=== PATIENT | male | born 1975 | race Caucasian/White ===

== ENCOUNTER 2018-06-01 09:27 | Emergency (ER) | payer OTHER ==
[2018-06-01 09:31] VITALS: TEMP 98.4; BMI 36.6
[2018-06-01] MEDS ORDERED: LIDO 2%/EPI 1:200000 PRESRVFRE (20 ML SDVIAL) ONE (09:32)
[2018-06-01] MEDS ORDERED: LIDOCAINE 1%/EPI 1:100000 (50 ML MULTI DOSE VIAL) INF ONE (10:00)
[2018-06-01] MEDS ORDERED: IBUPROFEN 400 MG TABLET (FP) PO ONE ×2 (10:00→10:06)
--- NOTE | 2018-06-01 10:05 | PDOC ---
History of Present Illness - General Chief Complaint: Wound Stated Complaint: CYST BEHIND LEFT EAR Time Seen by Provider: 06/01/18 09:29 - History of Present Illness Initial Comments: 06/01/18 10:01 43yo M hx HTN (prev on meds, but were stopped due to controlled BP) presents to the ED with painful cyst behind L ear. Pt noticed the cyst 3 days ago and states the pain has gotten worse since. Denies fevers, chills, headache, ear pain. Pt unable to see cyst and thus can not tell us if redness has increased. Denies hx similar sxs. Denies recent CP, SOB, visual changes, weakness, numbness , dizziness, abd pain, N/V/D. Past History - Past Medical History Allergies/Adverse Reactions: Allergies Allergy/AdvReac Type Severity Reaction Status Date / Time No Known Allergies Allergy Verified 06/01/18 09:35 Home Medications: Ambulatory Orders NK [No Known Home Medication] 06/01/18 COPD: No HTN: Yes (not on meds x 4 months.) - Suicide/Smoking/Psychosocial Hx Smoking History: Former smoker Have you smoked in the past 12 months: No Number of Cigarettes Smoked Daily: 1 If you are a former smoker, when did you quit?: 2 teasr ago Information on smoking cessation initiated: No Hx Alcohol Use: Yes (socially) Drug/Substance Use Hx: No Substance Use Type: None Review of Systems - Review of Systems Comments:: 06/01/18 10:04 GENERAL/CONSTITUTIONAL: No fever or chills. No weakness. HEAD, EYES, EARS, NOSE AND THROAT: No change in vision. No ear pain or discharge. No sore throat. GASTROINTESTINAL: No nausea, vomiting, diarrhea or constipation. GENITOURINARY: No dysuria, frequency, or change in urination. CARDIOVASCULAR: No chest pain or shortness of breath. RESPIRATORY: No cough, wheezing, or hemoptysis. MUSCULOSKELETAL: No joint or muscle swelling or pain. No neck or back pain. SKIN: +cyst behind L ear NEUROLOGIC: No headache, vertigo, loss of consciousness, or change in strength/ sensation. ENDOCRINE: No increased thirst. No abnormal weight change. HEMATOLOGIC/LYMPHATIC: No anemia, easy bleeding, or history of blood clots. ALLERGIC/IMMUNOLOGIC: No hives or skin allergy. *Physical Exam - Vital Signs Last Vital Signs Temp Pulse Resp BP Pulse Ox 98.4 F 81 18 178/116 H 98 06/01/18 09:28 06/01/18 09:28 06/01/18 09:28 06/01/18 09:28 06/01/18 09:28 - Physical Exam Comments: 06/01/18 10:05 GENERAL: Awake, alert, and fully oriented, in no acute distress. Non toxic, well appearing EYES: PERRLA, EOMI, sclera anicteric, conjunctiva clear ENT: Auricles normal inspection, hearing grossly normal, +1cm erythematous fluctuant tender cyst with no streaking or surrounding erythema. Oropharynx clear without exudates. Moist mucosa NECK: Normal ROM, supple, no lymphadenopathy or masses LUNGS: Breath sounds equal, clear to auscultation bilaterally. No wheezes, and no crackles HEART: Regular rate and rhythm, normal S1 and S2, no murmurs, rubs or gallops ABDOMEN: Soft, nontender, normoactive bowel sounds. No guarding, no rebound. No masses EXTREMITIES: Normal range of motion, no edema. No clubbing or cyanosis. No cords, erythema, or tenderness NEUROLOGICAL: Normal speech, cranial nerves intact, equal strength and sensation b/l. Normal gait SKIN: As noted above Procedures - Incision and Drainage I&D Site: Left: Other (posterior auricle) Anesthesia: 1% Lidocaine w/ Epi Volume(ml): 1 Blade Size: 11 Attempts: 1 Plain Packing: No Complications: none Dressing: Yes Medical Decision Making - Medical Decision Making 06/01/18 10:09 43yo M presents to the ED with infected cyst posterior to L ear. No surrounding erythema or streaking to suggest cellulitis or extension. 1% lido with epi given for anesthesia. I&D performed with drainage of white pus and sebaceous material. Wound dressed. No need for packing due to small size and no need for abx at this time given local infection. Pt lives alone, states can get help with dressing changes but can not visualize wound. As such, pt instructed to return in 48hrs for wound check. Pt offered ibuprofen but declined as pain was well controlled. Pt well appearing, non toxic, stable for DC home I discussed the physical exam findings, ancillary test results and final diagnoses with the patient. I answered all of the patient's questions. The patient was satisfied with the care received and felt comfortable with the discharge plan and treatment plan. The patient will call their primary care physician within 24 hours to arrange follow-up and will return to the Emergency Department with any new, persistent or worsening symptoms. *DC/Admit/Observation/Transfer Diagnosis at time of Disposition: Infected cyst of skin - Discharge Dispostion Disposition: HOME Condition at time of disposition: Stable Decision to Admit order: No - Referrals - Patient Instructions Printed Discharge Instructions: DI for Skin Abscess Additional Instructions: Change the dressing twice a day, as discussed have a family member keep an eye on the wound Take ibuprofen or tylenol as needed for pain Your blood pressure was elevated in the emergency department. Follow up with your primary doctor within 2-3 days as you may need to be restarted on blood pressure medications. Return on Friday06/03/18 for a wound check Return to the emergency department if you have any new, worsening, or concerning symptoms such as fever, increasing redness, discharge Print Language: CZECH - Post Discharge Activity - Attestations Physician Attestion: 06/01/18 10:14 I, Dr. Yvonne Gandhi MD, attest that this document has been prepared under my direction and personally reviewed by me in its entirety. I further attest, that it accurately reflects all work, treatment, procedures and medical decision -making performed by me.
[2018-06-01 10:12] VITALS: BP 157/95; PULSE 80
== END 2018-06-01 10:19 | disposition home or self-care (01) ==
LOC: FER 09:27
DX: Z53.21 Procedure and treatment not carried out due to patient leaving prior to being seen by health care provider (principal)
CPT/HCPCS: 87070; 87077; 87205; 99283-25

== ENCOUNTER 2018-06-03 08:47 | Emergency (ER) | payer OTHER ==
--- NOTE | 2018-06-03 08:49 | PDOC ---
History of Present Illness - General Chief Complaint: Revisit,Wound Recheck Stated Complaint: WOUND CHECK LEFT EAR Time Seen by Provider: 06/03/18 08:49 History Source: Patient Exam Limitations: No Limitations - History of Present Illness Initial Comments: 06/03/18 08:53 Mr Whitt presents to the ER for a wound check He was seen in the ER 3 days ago for incision and drainage of an abscess behind the left ear which had been present for a few days No fevers or chills Pt is unable to see behind the ear so unable to say if it has been red No drainage No pain at all in the ER or behind the ear No swelling PMH: HTN PSH: denies Meds: not currently taking any medications ALL: NKDA Social: denies tobacco, FH: non contributore ROS: GENERAL/CONSTITUTIONAL: No: fever, chills . HEAD, EYES, EARS, NOSE AND THROAT: No: swelling behind ear CARDIOVASCULAR: No: chest pain, lightheadedness, palpitations, syncope RESPIRATORY: No: cough, shortness of breath GASTROINTESTINAL: No: nausea, vomiting, diarrhea, abdominal pain GENITOURINARY: No: flank pain. MUSCULOSKELETAL: No: back pain SKIN: No: drainage, swelling NEUROLOGIC: No: headache PE: GENERAL: The patient is in no acute distress. HEAD: Normal EYES: PERRLA, EOMI ENT: Ears normal, nares patent, no mastoid tenderness, Moist mucous membranes. NECK: Normal range of motion, supple without lymphadenopathy LUNGS: Breath sounds equal, clear to auscultation bilaterally. HEART:Regular rate and rhythm, normal S1 and S2 without murmur ABDOMEN: Soft, nontender EXTREMITIES: Normal range of motion, no edema. No clubbing or cyanosis. No erythema, or tenderness. NEUROLOGICAL: Cranial nerves II through XII grossly intact. Normal speech. No focal neurological deficits. SKIN: No erythema behind left ear, no drainage, no swelling 06/03/18 08:54 Past History - Past Medical History Allergies/Adverse Reactions: Allergies Allergy/AdvReac Type Severity Reaction Status Date / Time No Known Allergies Allergy Verified 06/03/18 08:49 Home Medications: Ambulatory Orders NK [No Known Home Medication] 06/03/18 COPD: No HTN: Yes (not on meds x 4 months.) - Suicide/Smoking/Psychosocial Hx Smoking History: Former smoker Have you smoked in the past 12 months: No Number of Cigarettes Smoked Daily: 1 If you are a former smoker, when did you quit?: 2 teasr ago Hx Alcohol Use: Yes (socially) Drug/Substance Use Hx: No Medical Decision Making - Medical Decision Making 06/03/18 08:59 Skin behind left ear is nml, no signs of cellulitis Will plan to discharge to home Pt BP elevated will re check Pt already has plan to follow up with PMD on Friday for medication initiation *DC/Admit/Observation/Transfer Diagnosis at time of Disposition: Cyst Hypertension Qualifiers: Hypertension type: unspecified Qualified Code(s): I10 - Essential (primary) hypertension - Discharge Dispostion Disposition: HOME Condition at time of disposition: Stable Decision to Admit order: No - Referrals - Patient Instructions Printed Discharge Instructions: DI for High Blood Pressure, DI for Epidermal Cyst Additional Instructions: Thank you for coming in to the ER today Please be sure to keep your appointment with your primary doctor for blood pressure medications Your blood pressure is high If you notice symptoms - chest pain, shortness of breath, palpitations, headache , weakness, abdominal pain, come back to be checked again You had an infection of a cyst behind your left ear The cyst is still there and could possibly become infected again You will need to follow up with your doctor about this cyst In some people, it is recommended that the cyst be removed If you notice this area is swollen, hot, painful please return to be re evaluated - Post Discharge Activity Forms/Work/School Notes: Back to Work
[2018-06-03 09:03] VITALS: TEMP 98.1; BMI 36.6
[2018-06-03 09:20] VITALS: BP 157/106; PULSE 68
== END 2018-06-03 09:25 | disposition home or self-care (01) ==
LOC: FER 08:47
DX: Z48.01 Encounter for change or removal of surgical wound dressing (principal)
CPT/HCPCS: 99281-25

== ENCOUNTER 2020-08-25 06:52 | Day surgery (SDC) | payer OTHER ==
[2020-08-22 17:09] VITALS: BMI 36.1
[2020-08-25] MEDS ORDERED: oxyCODONE HCL 5 MG TABLET PO ONE (07:13)
[2020-08-25] MEDS ORDERED: ACETAMINOPHEN 325 MG TABLET (FP) PO PRN (07:13)
[2020-08-25] MEDS ORDERED: BUPIVACAINE HCL/EPINEPHRINE/PF 30 ML VIAL IJ ONE ×2 (08:44→08:47)
[2020-08-25] MEDS ORDERED: BUPIVACAINE HCL 50 ML ONE (08:47)
[2020-08-25] MEDS ORDERED: MORPHINE 5 MG/10 ML AMP - FOR COMPOUNDING USE ONLY ONE (08:48)
[2020-08-25] MEDS ORDERED: MIDAZOLAM HCL 2 MG/2 ML SINGLE DOSE VIAL ONE ×3 (09:12→09:31)
[2020-08-25] MEDS ORDERED: BUPIVACAINE HCL/PF 0.5% (5 MG/ML) 30 ML VIAL IJ ONE (10:28)
[2020-08-25] MEDS ORDERED: oxyCODONE HCL 5 MG TABLET PO PRN (10:43)
[2020-08-25] MEDS ORDERED: ONDANSETRON 4 MG/2 ML VIAL IVPUSH PRN (10:43)
[2020-08-25 12:29] VITALS: TEMP 98
[2020-08-25 14:25] VITALS: BP 148/83; PULSE 66
== END 2020-08-25 14:40 | disposition home or self-care (01) ==
LOC: FASU 06:52
PROVIDERS: ATTEND Orthopaedic Surgery
PROC: 0SBC4ZZ Excision of Right Knee Joint, Percutaneous Endoscopic Approach (ICD-10-PCS; principal; 2020-08-25 09:44)
DX: S83.271A Complex tear of lateral meniscus, current injury, right knee, initial encounter (principal); X58.XXXA Exposure to other specified factors, initial encounter; Y93.9 Activity, unspecified; Y92.9 Unspecified place or not applicable; Y99.9 Unspecified external cause status
CPT/HCPCS: 94760

== ENCOUNTER 2021-09-14 04:12 | Day surgery (SDC) | payer OTHER ==
[2021-09-13 13:03] VITALS: BMI 33.3
[2021-09-14] MEDS ORDERED: BUPIVACAINE HCL/PF 0.5% (5MG/ML) 10 ML VIAL ONE (10:35)
[2021-09-14] MEDS ORDERED: LIDOCAINE HCL/PF 1% SDV 5ML VIAL ONE (10:36)
[2021-09-14] MEDS ORDERED: LIDOCAINE HCL 1% PRESERVATIVE FREE - 30ML VIAL IJ ONE ×2 (11:09→11:28)
[2021-09-14] MEDS ORDERED: IOHEXOL 180 MG/1 ML ML IJ ONE ×2 (11:10→11:29)
[2021-09-14] MEDS ORDERED: BUPIVACAINE HCL/PF 0.5% (5MG/ML) 10 ML VIAL IJ ONE (11:10)
[2021-09-14] MEDS ORDERED: TRIAMCINOLONE ACET 40MG/1ML VIAL IM ONE (11:11)
[2021-09-14 12:07] VITALS: BP 124/72; PULSE 61; TEMP 97.4
== END 2021-09-14 12:05 | disposition home or self-care (01) ==
LOC: JASU-SURG 04:12
PROVIDERS: ATTEND Pain Medicine Pain Medicine
PROC: 3E0U33Z Introduction of Anti-inflammatory into Joints, Percutaneous Approach (ICD-10-PCS; 2021-09-14)
PROC: 3E0U3BZ Introduction of Anesthetic Agent into Joints, Percutaneous Approach (ICD-10-PCS; principal; 2021-09-14 11:00)
DX: M53.3 Sacrococcygeal disorders, not elsewhere classified (principal); M54.50 Low back pain, unspecified
CPT/HCPCS: 76000-TC-FY

== ENCOUNTER 2021-11-06 04:34 | Day surgery (SDC) | payer OTHER ==
[2021-11-05 12:07] VITALS: BMI 32.5
[~2021-11-06 04:34] MED LIST: BUPIVACAINE HCL/PF 0.75% 10 ML VIAL NR ONE; IOHEXOL 180 MG/1 ML ML IJ ONE; LIDOCAINE HCL 1% PRESERVATIVE FREE - 30ML VIAL IJ ONE
[2021-11-06] MEDS ORDERED: LIDOCAINE HCL/PF 1% SDV 5ML VIAL ONE ×2 (07:35→11:58)
[2021-11-06] MEDS ORDERED: DEXAMETHASONE SOD PHOSPHATE 10 MG/1 ML VIAL ONE (11:58)
[2021-11-06] MEDS ORDERED: LIDOCAINE HCL 1% PRESERVATIVE FREE - 30ML VIAL IJ ONE (14:01)
[2021-11-06] MEDS ORDERED: IOHEXOL 180 MG/1 ML ML IJ ONE (14:02)
[2021-11-06] MEDS ORDERED: BUPIVACAINE HCL/PF 0.75% 10 ML VIAL NR ONE (14:04)
[2021-11-06 14:19] VITALS: TEMP 98.2
[2021-11-06 14:33] VITALS: BP 129/73; PULSE 69
== END 2021-11-06 14:35 | disposition home or self-care (01) ==
LOC: JASU-SURG 04:34
PROVIDERS: ATTEND Pain Medicine Pain Medicine
PROC: BR16YZZ Fluoroscopy of Lumbar Facet Joint(s) using Other Contrast (ICD-10-PCS; 2021-11-06)
PROC: 3E0T3BZ Introduction of Anesthetic Agent into Peripheral Nerves and Plexi, Percutaneous Approach (ICD-10-PCS; principal; 2021-11-06 14:30)
DX: M47.816 Spondylosis without myelopathy or radiculopathy, lumbar region (principal); I10 Essential (primary) hypertension
CPT/HCPCS: 76000-TC-FY; J1100

== ENCOUNTER 2021-12-18 04:32 | Day surgery (SDC) | payer OTHER ==
[2021-12-17 13:24] VITALS: BMI 33.3
[2021-12-18] MEDS ORDERED: LIDOCAINE HCL 1% PRESERVATIVE FREE - 30ML VIAL PNB ONE (12:21)
[2021-12-18] MEDS ORDERED: BUPIVACAINE HCL/PF 0.75% 10 ML VIAL PNB ONE (12:23)
[2021-12-18 12:37] VITALS: TEMP 98
[2021-12-18 12:59] VITALS: BP 133/87; PULSE 65
== END 2021-12-18 12:50 | disposition home or self-care (01) ==
LOC: JASU-SURG 04:32
PROVIDERS: ATTEND Pain Medicine Pain Medicine
PROC: 3E0T33Z Introduction of Anti-inflammatory into Peripheral Nerves and Plexi, Percutaneous Approach (ICD-10-PCS; 2021-12-18)
PROC: 3E0T3BZ Introduction of Anesthetic Agent into Peripheral Nerves and Plexi, Percutaneous Approach (ICD-10-PCS; principal; 2021-12-18 11:00)
DX: M47.816 Spondylosis without myelopathy or radiculopathy, lumbar region (principal)
CPT/HCPCS: 76000-TC-FY

== ENCOUNTER 2022-01-15 04:50 | Day surgery (SDC) | payer OTHER ==
[2022-01-14 09:34] VITALS: BMI 33.3
[2022-01-15] MEDS ORDERED: BUPIVACAINE HCL/PF 0.75% 10 ML VIAL ONE (07:46)
[2022-01-15] MEDS ORDERED: DEXAMETHASONE SOD PHOSPHATE 10 MG/1 ML VIAL ONE (07:47)
[2022-01-15] MEDS ORDERED: LIDOCAINE HCL/PF 1% SDV 5ML VIAL ONE (07:47)
[2022-01-15] MEDS ORDERED: LIDOCAINE HCL/PF 2% SDV 5ML VIAL PNB ONE ×2 (12:38)
[2022-01-15] MEDS ORDERED: LIDOCAINE HCL 1% PRESERVATIVE FREE - 30ML VIAL IJ ONE (12:38)
[2022-01-15] MEDS ORDERED: BUPIVACAINE HCL/PF 0.75% 10 ML VIAL NR ONE (12:39)
[2022-01-15 13:20] VITALS: BP 131/84; PULSE 63; TEMP 98.1
== END 2022-01-15 13:44 | disposition home or self-care (01) ==
LOC: JASU-SURG 04:50
PROVIDERS: ATTEND Pain Medicine Pain Medicine
PROC: BR16YZZ Fluoroscopy of Lumbar Facet Joint(s) using Other Contrast (ICD-10-PCS; 2022-01-15)
PROC: 3E0T3TZ Introduction of Destructive Agent into Peripheral Nerves and Plexi, Percutaneous Approach (ICD-10-PCS; principal; 2022-01-15 10:15)
DX: M47.816 Spondylosis without myelopathy or radiculopathy, lumbar region (principal); I10 Essential (primary) hypertension
CPT/HCPCS: 76000-TC-FY; J1100

== ENCOUNTER 2022-03-12 04:35 | Day surgery (SDC) | payer OTHER ==
[2022-03-07 11:58] VITALS: BMI 33.3
[2022-03-12 07:00] VITALS: RESP 18
[2022-03-12] MEDS ORDERED: BUPIVACAINE HCL 50 ML ONE (07:12)
[2022-03-12] MEDS ORDERED: TRIAMCINOLONE ACET 40MG/1ML VIAL ONE (07:12)
[2022-03-12] MEDS ORDERED: LIDOCAINE HCL/PF 1% SDV 5ML VIAL ONE (07:12)
[2022-03-12] MEDS ORDERED: BUPIVACAINE HCL/PF 0.5% (5MG/ML) 10 ML VIAL IJ ONE (08:45)
[2022-03-12] MEDS ORDERED: LIDOCAINE HCL 1%, 10 MG/ML (20ML VIAL) NR ONE (08:46)
[2022-03-12] MEDS ORDERED: IOHEXOL 180 MG/1 ML ML IJ ONE (08:46)
[2022-03-12] MEDS ORDERED: TRIAMCINOLONE ACETONIDE 40 MG/ML 10 ML VIAL IJ ONE (08:47)
[2022-03-12 09:22] VITALS: BP 140/83; PULSE 60; TEMP 98.6
== END 2022-03-12 09:15 | disposition home or self-care (01) ==
LOC: JASU-SURG 04:35
PROVIDERS: ATTEND Pain Medicine Pain Medicine
PROC: 3E0U3BZ Introduction of Anesthetic Agent into Joints, Percutaneous Approach (ICD-10-PCS; 2022-03-12)
PROC: 3E0U33Z Introduction of Anti-inflammatory into Joints, Percutaneous Approach (ICD-10-PCS; principal; 2022-03-12 09:30)
DX: M53.3 Sacrococcygeal disorders, not elsewhere classified (principal)
CPT/HCPCS: 76000-TC-FY

== ENCOUNTER 2022-08-27 04:28 | Day surgery (SDC) | payer OTHER ==
[2022-08-21 17:15] VITALS: BMI 33.3
[2022-08-27 08:59] VITALS: RESP 18
[2022-08-27] MEDS ORDERED: LIDOCAINE HCL/PF 1% SDV 5ML VIAL ONE (10:22)
[2022-08-27] MEDS ORDERED: BUPIVACAINE HCL/PF 0.25% (2.5MG/ML) 10 ML VIAL ONE (10:22)
[2022-08-27] MEDS ORDERED: BUPIVACAINE HCL/PF 0.25% (2.5MG/ML) 10 ML VIAL IJ ONE (10:56)
[2022-08-27] MEDS ORDERED: IOHEXOL 180 MG/1 ML ML IJ ONE (10:56)
[2022-08-27] MEDS ORDERED: TRIAMCINOLONE ACETONIDE 40 MG/ML 10 ML VIAL IJ ONE (10:56)
[2022-08-27] MEDS ORDERED: LIDOCAINE HCL 1% PRESERVATIVE FREE - 30ML VIAL IJ ONE (10:56)
[2022-08-27] MEDS ORDERED: TRIAMCINOLONE ACET 40MG/1ML VIAL ONE (12:39)
[2022-08-27 13:31] VITALS: TEMP 97.3
[2022-08-27 13:32] VITALS: BP 119/72; PULSE 68
== END 2022-08-27 11:40 | disposition home or self-care (01) ==
LOC: JASU-SURG 04:28
PROVIDERS: ATTEND Pain Medicine Pain Medicine
PROC: 3E0U3BZ Introduction of Anesthetic Agent into Joints, Percutaneous Approach (ICD-10-PCS; 2022-08-27)
PROC: 3E0U33Z Introduction of Anti-inflammatory into Joints, Percutaneous Approach (ICD-10-PCS; principal; 2022-08-27 10:30)
DX: M16.11 Unilateral primary osteoarthritis, right hip (principal)
CPT/HCPCS: 76000-TC-FY